=== PATIENT | female | born 1985 | race Caucasian/White ===

== ENCOUNTER 2020-05-19 19:29 | Emergency (ER) | payer BC, SELFPAY ==
[2020-05-19 19:35] VITALS: BP 139/78; PULSE 86; RESP 16; TEMP 36.7; O2SAT 100; BMI 30.1
[2020-05-19 19:46] LABS: Microscopic, Urine URINE MICROSCOPIC (MICROSCOPIC)
[2020-05-19 19:50] LABS: Urine Pregnancy, HCG Qual. Positive (Negative)
[2020-05-19 19:51] LABS: Appearance,Urine SL CLOUDY (Clear); Bilirubin,Urine Negative (Negative); Blood, Urine 3+ (Negative); Color,Urine YELLOW (Yellow); Glucose,Urine (UA) Negative (Negative); Ketones,Urine Negative (Negative); Leukocyte Esterase,Urine TRACE (Negative); Nitrate,Urine Negative (Negative); PH,Urine 6.5 (5.0-8.5); Protein,Urine Negative (Negative); Urobilinogen,Urine 0.2 EU/dl (0.2)
--- NOTE | 2020-05-19 19:53 | PC.NURSE ---
call placed to rad for ultrasound call-in
[2020-05-19 19:54] LABS: Amorphous Sediment,Urine 2+ /lpf
--- NOTE | 2020-05-19 19:54 | US_ITS ---
PROCEDURE: US OB TRANSVAGINAL CLINICAL INDICATION: VAG BLEEDING Early , vaginal bleeding COMPARISON: No exams were available for comparison FINDINGS: There is an intrauterine gestational sac with a pole and yolk sac noted. The crown-rump length is 5.5 mm correlating to gestational age of 6 weeks and 3 days. Heart flicker is noted with technologist was unable to get a tracing for a heart rate. The cervix is closed. There did appear to be a small amount of endocervical fluid. No adnexal mass or cul-de-sac fluid evident. IMPRESSION: Intrauterine gestation at 6 weeks 3 days. Heart flicker is noted but unable to get a tracing for heart rate. Suggest follow-up to confirm viability. Estimated due date by ultrasound is 01/09/2021. Dictated by: Bari Joseph MD 05/20/2020 05:38 Bari Joseph MD in [place] 05/20/2020 05:38
[2020-05-19 19:59] LABS: Basophils % 0.4 % (0.1-2.0); Eosinophils # 0.4 K/mm3 (0.0-0.4); Eosinophils % 4.2 % (0.1-12.0); Hematocrit 40.4 % (37.0-47.0); Hemoglobin 14.2 g/dL (12.2-16.2); Lymphocytes # 2.9 K/mm3 (0.7-4.5); Lymphocytes % 29.6 % (10-50); Mean Corpuscular HGB Conc 35.2 g/dL (31.8-35.4); Mean Corpuscular Volume 93.7 fl (81-99); Monocytes # 0.7 K/mm3 (0.1-1.0); Neutrophils # 5.7 K/mm3 (1.8-7.8); Neutrophils % 58.9 % (37.0-80.0); Platelet Count 271 K/mm3 (142-424); Red Blood Count 4.31 M/mm3 (4.20-5.40); Red Cell Distribution Width 12.7 % (11.5-17.5); White Blood Count 9.7 K/mm3 (4.8-10.8)
--- NOTE | 2020-05-19 20:04 | HMH.EDPREG ---
ED Disposition Clinical Impression: Vaginal bleeding before 22 weeks gestation Qualifiers: Weeks of gestation: less than 8 weeks Qualified Code(s): Z3A.01 - Less than 8 weeks gestation of Disposition: Home, Self-Care Condition on Discharge: Good Instructions: DI for Vaginal Bleeding Additional Instructions: keep appt in am with ob Referrals: PCP,No [Primary Care Provider] - - Critical Care Critical Care Time: No Attestation: On 05/19/20, the high probability of a clinically significant, sudden or life threatening deterioration of the following system(s) required my full and direct attention, intervention and personal management. The time I documented below is in addition to time spent performing reported procedures but includes the following listed in this critical care notation. Medical Decision Making - Medical Records Medical records reviewed: Yes: I reviewed the patient's medical records. - Nguyễn Inquiry Pt receiving controlled substance: No Vital Signs: 05/19/20 19:35 05/19/20 20:05 05/19/20 20:38 Temperature 98.1 F Temperature Source Oral Pulse Rate [Right Brachial] 86 80 79 Respiratory Rate 16 18 18 Blood Pressure [Right Arm] 139/78 120/74 125/66 Blood Pressure Mean [Right Arm] 98 89 85 Blood Pressure Source [Right Arm] Automatic Cuff Blood Pressure Position [Right Arm] Sitting 02 Sat by Pulse Oximetry 100 100 100 Oxygen Delivery Method Room Air 05/19/20 21:14 Temperature Temperature Source Pulse Rate [Right Brachial] 64 Respiratory Rate 18 Blood Pressure [Right Arm] 121/70 Blood Pressure Mean [Right Arm] 87 Blood Pressure Source [Right Arm] Blood Pressure Position [Right Arm] 02 Sat by Pulse Oximetry 100 Oxygen Delivery Method - Lab Data Lab results reviewed: Yes: I reviewed the patient's lab results. Lab Results 05/19/20 19:35: Urine Color Yellow, Urine Appearance Sl cloudy, Urine pH 6.5, Ur Specific [place] 1.020, Urine Protein Negative, Urine Glucose (UA) Negative, Urine Ketones Negative, Urine Blood 3+, Urine Nitrate Negative, Urine Bilirubin Negative, Urine Urobilinogen 0.2, Ur Leukocyte Esterase Trace, Urine RBC 5-10, Urine WBC 10-20, Ur Squamous Epith Cells 10-20, Amorphous Sediment 2+ 05/19/20 19:35: Urine HCG, Qual Positive 05/19/20 19:46: WBC 9.7, RBC 4.31, Hgb 14.2, Hct 40.4, MCV 93.7, MCH 33.0 H, MCHC 35.2, RDW 12.7, Plt Count 271, MPV 7.0 L, Neut % (Auto) 58.9, Lymph % (Auto) 29.6, [place] % (Auto) 7.0, Eos % (Auto) 4.2, Baso % (Auto) 0.4, Neut # (Auto) 5.7, Lymph # (Auto) 2.9, [place] # (Auto) 0.7, Eos # (Auto) 0.4, Baso # (Auto) 0.0 05/19/20 19:46: Sodium 137, Potassium 3.9, Chloride 104, Carbon Dioxide 26, Anion Gap 10.9, BUN 13, Creatinine 0.70, Estimated Creat Clear 139, Estimated GFR 96, Est GFR ( Amer) 117, Glucose 101 H, Calcium 9.0, Total Bilirubin 0.3, AST 24, ALT 18, Alkaline Phosphatase 71, Total Protein 6.8, Albumin 4.1, Globulin 2.7, Albumin/Globulin Ratio 1.5, HCG, Quant [id number] H 05/19/20 21:20: Blood Type O Positive, Antibody Screen Negative Result diagrams: 05/19/20 19:46 05/19/20 19:46 Orders (Tests/Meds): ORDERS Category Date Time Status Urine Culture Stat Micro 05/19/20 19:35 Received US OB transvaginal Stat Ultrasound 05/19/20 19:54 Taken - US Data US Images: Pelvis ED US Reviewed: Yes: I discussed the US results w/the radiologist Findings Narrative: 6 weeks with cardiac flicker HPI - General Chief complaint: Vaginal Bleeding Stated complaint: 8-9 Weeks , vaginal bleeding Time Seen by Provider: 05/19/20 20:00 Mode of Arrival: Ambulatory Source of Information: Patient, Medical Record Limitations: No Limitations Description of Symptoms (Recalled from ER Triage Doc. by RN): Patient reports she is around 8-9 wks , she had a positive pee test at home and is scheduled to see her OB for the first time tomorrow. patient reports around 1045 this morning she noticed some l
[2020-05-19 20:05] VITALS: BP 120/74; PULSE 80; RESP 18; O2SAT 100
[2020-05-19 20:05] LABS: Chloride 104 mmol/L (98-107); Potassium 3.9 mmoL/L (3.5-5.1); Sodium 137 mmol/L (136-145)
[2020-05-19 20:08] LABS: Alanine Aminotransferase 18 U/L (12-78); Albumin Level 4.1 g/dl (3.5-5.0); Albumin/Globulin Ratio 1.5 (1.1-1.8); Alkaline Phosphatase 71 U/L (38-126); Anion Gap 10.9 mEq/L (5-15); Aspartate Amino Transferase 24 U/L (14-36); Bilirubin,Total 0.3 mg/dl (0.2-1.3); Blood Urea Nitrogen 13 mg/dl (7-17); Carbon Dioxide 26 mmol/L (22.0-30.0); Creatinine Clearance Estimated 139 mL/min (50-200); Estimated Glomerular Filt Rate 96 ml/min (>60); GFR (African American) 117 ML/MIN (>60); Globulin 2.7 g/dL (1.3-3.2); Total Protein,Serum 6.8 g/dl (6.3-8.2)
[2020-05-19 20:09] LABS: Glucose 101 mg/dl (74-100)
--- NOTE | 2020-05-19 20:28 | PC.NURSE ---
PT GONE TO US AT THIS TIME
[2020-05-19 20:38] VITALS: BP 125/66; PULSE 79; RESP 18; O2SAT 100
[2020-05-19 21:14] VITALS: BP 121/70; PULSE 64; RESP 18; O2SAT 100
[2020-05-19 22:20] VITALS: BP 118/72; PULSE 68; RESP 16; TEMP 36.7; O2SAT 100
== END 2020-05-19 22:24 | disposition home or self-care (01) ==
PROVIDERS: Emergency Medicine; Emergency Provider Emergency Medicine
DX: O20.9 Hemorrhage in early pregnancy, unspecified (principal); Z3A.08 8 weeks gestation of pregnancy
CPT/HCPCS: 36415; 76817; 80053; 81001; 81025; 84702; 85025; 86850; 87086; 99284

== ENCOUNTER 2022-03-04 19:06 | Emergency (ER) | payer BC, SELFPAY ==
[2022-03-04 19:10] VITALS: BP 138/76; PULSE 91; RESP 19; TEMP 36.8; O2SAT 98; BMI 30.6
--- NOTE | 2022-03-04 20:06 | HMH.EDUTC ---
[facility] [place] Disposition Clinical Impression: Sinusitis Qualifiers: Sinusitis location: unspecified location Chronicity: unspecified Qualified Code(s): J32.9 - Chronic sinusitis, unspecified Disposition: Home, Self-Care Condition on Discharge: Good Instructions: Sinusitis, DI for Sinusitis, Methylprednisolone, Azithromycin Additional Instructions: *Monitor Temp, Over the counter Motrin or Tylenol as directed/as needed Tylenol every 4 hours and Motrin every 6 hours (as long as your family doctor has told you that you can take it) for fever or pain. and straight to ER if unable to lower temp less than 101.0 after medication given *Warm salt water gargles may help to soothe the throat *Throat Lozenges *Warm fluids like tea with honey may help to soothe the throat *Sleep elevated *Humidifier/Vaporizer Take medication as prescribed Return if needed Follow up IMMEDIATELY for new or worsening symptoms or no Noticeable improvement over the next 48-72 hours. 911 for difficulty breathing or swallowing Prescriptions: methylPREDNISolone [Medrol 4mg tab] 4 mg PO DIRECTED #21 tab Transmission Status: Pending to [facility] #[id number] Azithromycin [Z-Emmanuel 250mg Tab] 250 mg PO DIRECTED #6 tab Transmission Status: Pending to [facility] #[id number] Referrals: Provider,Referral, MD [Primary Care Provider] - As needed Time of Disposition: 20:17 Medical Decision Making - Nguyễn Inquiry Pt receiving controlled substance: No Nguyễn was queried for this patient: No Vital Signs: 03/04/22 19:10 03/04/22 20:32 Temperature 98.2 F 98.2 F Temperature Source Oral Pulse Rate 91 H Pulse Rate [Right Brachial] 91 H Respiratory Rate 19 19 Blood Pressure 138/76 Blood Pressure [Right Arm] 138/76 Blood Pressure Mean [Right Arm] 96 Blood Pressure Source [Right Arm] Automatic Cuff Blood Pressure Position [Right Arm] Sitting 02 Sat by Pulse Oximetry 98 Oxygen Delivery Method Room Air Orders (Tests/Meds): ED MEDICATIONS Discontinued Medications Generic Name Dose Route Start Last Admin Trade Name Freq PRN Reason Stop Dose Admin Ceftriaxone Sodium 1 gm 03/04/22 20:13 03/04/22 20:20 Ceftriaxone 1gm Vial IM 03/04/22 20:14 1 gm ONCE ONE Administration Ketorolac Tromethamine 60 mg 03/04/22 20:27 03/04/22 20:30 Ketorolac 60mg/2ml Vial IM 03/04/22 20:28 60 mg ONCE ONE Administration Lidocaine HCl 0 ml 03/04/22 20:13 03/04/22 20:20 Lidocaine 1% 5ml Pf Vial IM 03/04/22 20:14 2 ml ONCE ONE Administration Methylprednisolone Sodium Succinate 125 mg 03/04/22 20:13 03/04/22 20:20 Methylprednisolone Sod Succ 125mg Vial IM 03/04/22 20:14 125 mg ONCE ONE Administration Medical Decision Narrative: Patient denies [facility] [place] HPI - General Stated complaint: sinus upper congestion Time Seen by Provider: 03/04/22 20:07 Mode of Arrival: Ambulatory Source of Information: Patient Limitations: No Limitations Description of Symptoms (Recalled from Triage Doc. by RN): PATIENT C/O SINUS INFECTION THAT IS NOT RESPONSIVE TO OTC MEDICATIONS X 1 WEEK HEENT Symptoms (Recalled from RN notes): Yes Resp Symptoms (Recalled from RN notes): No Skin Symptoms (Recalled from RN notes): No MS Symptoms (Recalled from RN notes): No Functional Status (Recalled from RN notes): WNL - History of Present Illness Provider Complaint: Patient states that she has been having sinus pain and pressure for the last week that has continued to get worse States that she has been having headache and pressure behind her eyes States that today even her teeth hurt so tonight when she wasnt feeling any better she came in - Related Data Home Medications Medication Instructions Recorded Confirmed Dextroamphetamine/Amphetamine 20 mg PO TID 05/19/20 03/04/22 [Adderall 20 mg Tablet] Previous Rx's Medication Instructions Recorded Azithromycin [Z-Emmanuel 250mg Tab] 250 mg PO DIRECTED #6 tab 02/20
[2022-03-04 20:32] VITALS: BP 138/76; PULSE 91; RESP 19; TEMP 36.8; O2SAT 98
== END 2022-03-04 20:45 | disposition home or self-care (01) ==
PROVIDERS: Emergency Provider Nurse Practitioner
DX: J32.9 Chronic sinusitis, unspecified (principal)
CPT/HCPCS: 96372; 99212; G0463; J0696

== ENCOUNTER 2022-04-25 15:37 | Emergency (ER) | payer BC, SELFPAY ==
[2022-04-25 16:00] VITALS: BP 125/76; PULSE 83; RESP 18; TEMP 36.8; O2SAT 97; BMI 28.1
--- NOTE | 2022-04-25 16:13 | EXP.UTC ---
Discharge Plan Disposition Patient Disposition: Home, Self-Care Condition: Good Prescriptions Prescriptions: No Action dextroamphetamine-amphetamine 20 MG tablet 20 mg PO TID Referrals Follow up/Referrals: Provider,Referral, MD [Primary Care Provider] - See instructions Activity Restrictions/Add. Instructions Additional Instructions/Restrictions: Increase fluids and rest. Follow up with PCP if symptoms persist or worsen. Gargle with salt water or use throat lozenges as needed for throat pain. Take Tylenol/Ibuprofen as needed for pain/fever. Clinical Impressions Clinical Impression: Acute streptococcal pharyngitis Discharge ED Provider: Glenny Peace [facility] [place] HPI General Stated complaint: Sore throat Mode of Arrival: Ambulatory Source of Information: Patient Limitations: No Limitations Time Seen by Provider: 04/25/22 16:13 Description of Symptoms (Recalled from Triage Doc. by RN): PATIENT C/O SORE THROAT, LETHARGY AND COUGH X 3 DAYS HEENT Symptoms (Recalled from RN notes): Yes Resp Symptoms (Recalled from RN notes): Yes Skin Symptoms (Recalled from RN notes): No MS Symptoms (Recalled from RN notes): No Functional Status (Recalled from RN notes): WNL Related Data Home Medications Medication Instructions Recorded Confirmed dextroamphetamine-amphetamine 20 20 mg PO TID ADD 05/19/20 04/25/22 mg tablet Allergies Allergy/AdvReac Type Severity Reaction Status Date / Time No Known Allergies Allergy Verified 05/19/20 19:42 Worker's Comp Is this a Worker's Comp case?: No [facility] Medical History (Updated 04/25/22 @ 16:31 by Glenny Peace APRN) No significant past medical history Social History (Updated 04/25/22 @ 16:07 by Silva Vyas RN) Smoking Status: Current every day smoker alcohol intake: never current occupational status: other Travel in the last 8 weeks: None ROS Obtained: Yes All systems reviewed & no additional complaints except as documented Constitutional Constitutional: Reports fatigue, Reports fever(s) and Reports malaise ENT Ears, Nose, Mouth, and Throat: Reports nasal discharge, Reports odynophagia and Reports sore throat Cardiovascular Cardiovascular: Reports system reviewed and no additional complaints, except as documented Respiratory Respiratory: Reports as per HPI and Reports cough Gastrointestinal Gastrointestingal: Reports odynophagia Musculoskeletal Musculoskeletal: Reports system reviewed and no additional complaints, except as documented Integumentary/Breasts Skin/Breast: Reports system reviewed and no additional complaints, except as documented Neurologic Neurologic: Reports system reviewed and no additional complaints, except as documented Endocrine Endocrine: Reports fatigue Physical Exam General General appearance: alert and in no apparent distress Expanded ENT Exam External ear exam: Present normal external inspection Nasal speculum exam: Bilateral: normal Mouth exam: Present normal external inspection Teeth exam: Present normal inspection Throat exam: Present tonsillar erythema and tonsillomegaly Respiratory Respiratory exam: Present normal lung sounds bilaterally; Absent respiratory distress Cardiovascular Cardiovascular exam: Present regular rate and normal rhythm Abdominal Exam Abdominal exam: Present soft Extremities Exam Extremities exam: Present normal inspection Neurological Exam Neurological exam: Present alert and oriented X3 Lymphatic Lymphatic Findings: no adenopathy Medical Decision Making Nguyễn Inquiry Pt receiving controlled substance: No Nguyễn was queried for this patient: No Vital Signs: 04/25/22 16:00 Temperature 98.3 F Temperature Source Oral Pulse Rate [Right Brachial] 83 Respiratory Rate 18 Blood Pressure [Right Arm] 125/76 Blood Pressure Mean [Right Arm] 92 Blood Pressure Source [Right Arm] Automatic Cuff Blood Pressure Position [Right Arm] Sitting 02 Sat by Pulse Oximetry 97 Oxygen Deli
[2022-04-25 16:24] LABS: UTC Strep Screen (Rapid) Positive (Negative)
[2022-04-25 16:45] VITALS: BP 125/76; PULSE 83; RESP 18; TEMP 36.8; O2SAT 97
== END 2022-04-25 16:54 | disposition home or self-care (01) ==
PROVIDERS: Nurse Practitioner; Emergency Provider Nurse Practitioner Family
DX: J02.0 Streptococcal pharyngitis (principal)
CPT/HCPCS: 87880; 96372; 99212; G0463; J0561

== ENCOUNTER 2022-08-30 16:41 | Emergency (ER) | payer BC, SELFPAY ==
[2022-08-30 17:20] VITALS: BP 141/86; PULSE 84; RESP 19; TEMP 36.6; O2SAT 98; BMI 31.9
--- NOTE | 2022-08-30 17:39 | EXP.UTC ---
Discharge Plan Disposition Patient Disposition: Home, Self-Care Condition: Good Prescriptions Prescriptions: New prednisone 10 mg tablet 10 mg PO BID 5 Days Qty: 10 0RF benzonatate 100 mg capsule 100 mg PO TID PRN (Reason: cough) Qty: 30 0RF amoxicillin-pot clavulanate 875-125 mg Tablet 1 tab PO Q12H Qty: 14 0RF No Action dextroamphetamine-amphetamine 20 MG tablet 20 mg PO TID Referrals Follow up/Referrals: Provider,Referral, MD [Primary Care Provider] - See instructions Activity Restrictions/Add. Instructions Additional Instructions/Restrictions: Start your oral medication tomorrow *Monitor Temp, Over the counter Motrin or Tylenol as directed/as needed Tylenol every 4 hours and Motrin every 6 hours (as long as your family doctor has told you that you can take it) for fever or pain. and straight to ER if unable to lower temp less than 101.0 after medication given *Warm salt water gargles may help to soothe the throat *Throat Lozenges? *Warm fluids like tea with honey may help to soothe the throat? *Sleep elevated *Humidifier/Vaporizer Follow up IMMEDIATELY for new or worsening symptoms or no Noticeable improvement over the next 48-72 hours. 911 for difficulty breathing or swallowing Clinical Impressions Clinical Impression: Sinusitis Qualifiers: Sinusitis location: unspecified location Chronicity: unspecified Qualified Code(s): J32.9 - Chronic sinusitis, unspecified Instructions Patient Instructions: Sinusitis, DI for Sinusitis Discharge ED Provider: Suzie Pineda [facility] General Stated complaint: poss sinus inf, estuardo Time Seen by Provider: 08/30/22 17:39 History of Present Illness Provider Complaint: Patient states that she thinks she may have a sinus infection States that symptoms started about 6 days ago States that she had body aches earlier in the week but for the last 5 days she has been sinus pain and pressure, pressure in her ears and over all not feeling well States that today she was still not feeling any better so she came in to get it checked out Related Data Home Medications Medication Instructions Recorded Confirmed dextroamphetamine-amphetamine 20 20 mg PO TID ADD 05/19/20 04/25/22 mg tablet Previous Rx's Medication Instructions Recorded amoxicillin 875 mg-potassium 1 tab PO Q12H #14 tabs 08/30/22 clavulanate 125 mg tablet benzonatate 100 mg capsule 100 mg PO TID PRN cough #30 caps 08/30/22 prednisone 10 mg tablet 10 mg PO BID 5 days #10 tabs 08/30/22 Allergies Allergy/AdvReac Type Severity Reaction Status Date / Time No Known Allergies Allergy Verified 05/19/20 19:42 [facility] Disclaimer: The information contained in this section may have been updated after the patient was seen, as this information can be updated by other users. Medical History (Updated 08/30/22 @ 17:48 by Suzie Pineda APRN) No significant past medical history Social History (Updated 08/30/22 @ 17:42 by Silva Vyas RN) Smoking Status: Current every day smoker alcohol intake: never current occupational status: other Travel in the last 8 weeks: None ROS Obtained: Yes All systems reviewed & no additional complaints except as documented and Yes Systems reviewed as appropriate & no additional complaints except as documented Constitutional Constitutional: Reports system reviewed and no additional complaints, except as documented, Reports as per HPI, Reports body ache and Reports headache(s) ENT Ears, Nose, Mouth, and Throat: Reports system reviewed and no additional complaints, except as documented, Reports as per HPI, Reports headache(s), Reports sinus pain and Reports sinus pressure Cardiovascular Cardiovascular: Reports system reviewed and no additional complaints, except as documented and Reports as per HPI Respiratory Respiratory: Reports system reviewed and no additional complaints, except as documented, Reports as per
[2022-08-30 18:19] VITALS: BP 141/86; PULSE 84; RESP 19; TEMP 36.6; O2SAT 98
== END 2022-08-30 18:20 | disposition home or self-care (01) ==
PROVIDERS: Emergency Provider Nurse Practitioner
DX: J32.9 Chronic sinusitis, unspecified (principal)
CPT/HCPCS: 96372; 99212; 99213; G0463; J0696

== ENCOUNTER 2022-11-21 08:00 | Emergency (ER) | payer BC, SELFPAY ==
[2022-11-21 08:05] VITALS: BP 130/107; PULSE 83; RESP 22; TEMP 36.8; O2SAT 95; BMI 34.6
--- NOTE | 2022-11-21 08:27 | EXP.UTC ---
Discharge Plan Disposition Patient Disposition: Home, Self-Care Condition: Good Prescriptions Prescriptions: New azithromycin [azithromycin] 250 mg tablet 250 mg PO DIRECTED Qty: 6 0RF Rx Instructions: Take two (2) tablets on day #1, then one (1) tablet day #2 thru #5 benzonatate 100 mg capsule 100 mg PO BID PRN (Reason: cough) Qty: 10 0RF prednisone [prednisone] 20 mg tablet 20 mg PO BID Qty: 10 0RF No Action dextroamphetamine-amphetamine 20 MG tablet 20 mg PO TID Referrals Follow up/Referrals: Provider,Referral, MD [Primary Care Provider] - See instructions Activity Restrictions/Add. Instructions Additional Instructions/Restrictions: Start antibiotic today. Be sure to complete entire prescription even if feeling better Tylenol and ibuprofen as needed for pain or fever Humidifier/vaporizer/hot steamy shower Follow-up with primary care tomorrow. Follow-up immediately in the ER of the [facility] for new or worsening symptoms or no noticeable improvement over the next 48-72 hours. Stop smoking Inhaler every 4-6 hours as needed. Should help open airways improved cough, wheezing, shortness of breath Deepthi Baird will not cause drowsiness to use at bedtime to help stop cough so that she can get some sleep Start steroids today. Helps with inflammation therefore coughing and wheezing. Follow directions on package. Clinical Impressions Clinical Impression: Acute streptococcal pharyngitis, Acute bronchitis Instructions Patient Instructions: Acute Bronchitis, DI for Strep Throat [facility]charge [facility] General Stated complaint: Fever, bodyaches, sore throat, cough, congestion Mode of Arrival: Ambulatory Source of Information: Patient Limitations: No Limitations Time Seen by Provider: 11/21/22 08:27 Description of Symptoms (Recalled from Triage Doc. by RN): PATIENT C/O BAD COUGH X 7-8 WEEKS. PATIENT ALSO C/O FEVER, SORE THROAT, BODY ACHES, AND CHEST CONGESTION FOR THE LAST WEEK HEENT Symptoms (Recalled from RN notes): Yes Resp Symptoms (Recalled from RN notes): Yes Skin Symptoms (Recalled from RN notes): No MS Symptoms (Recalled from RN notes): No Functional Status (Recalled from RN notes): WNL History of Present Illness Provider Complaint: 37 yr old female presents for cough for 7-8 weeks, but over the last week she has had body aches,chills, sore throat,fever, chest congestion, coughing up thick green mucus and sinus pressure. Related Data Home Medications Medication Instructions Recorded Confirmed dextroamphetamine-amphetamine 20 20 mg PO TID ADD 05/19/20 11/21/22 mg tablet Previous Rx's Medication Instructions Recorded azithromycin 250 mg tablet 250 mg PO DIRECTED #6 tabs 11/21/22 benzonatate 100 mg capsule 100 mg PO BID PRN cough #10 caps 11/21/22 prednisone 20 mg tablet 20 mg PO BID #10 tabs 11/21/22 Allergies Allergy/AdvReac Type Severity Reaction Status Date / Time No Known Allergies Allergy Verified 05/19/20 19:42 Worker's Comp Is this a Worker's Comp case?: No [facility] Disclaimer: The information contained in this section may have been updated after the patient was seen, as this information can be updated by other users. Medical History , [employer]IL [employer]) No significant past medical history Social History , [employer]ENCIL [employer]) Smoking Status: Current every day smoker alcohol intake: never current occupational status: other Travel in the last 8 weeks: None ROS Obtained: Yes All systems reviewed & no additional complaints except as documented Constitutional Constitutional: Reports system reviewed and no additional complaints, except as documented, Reports as per HPI, Reports body ache, Reports chills and Reports fever(s) Eyes Eyes: Reports system reviewed and no additional complaints, except as documented ENT Ears, Nose, Mouth
[2022-11-21 08:54] VITALS: BP 130/107; PULSE 83; RESP 22; TEMP 36.8; O2SAT 95
[2022-11-21 08:57] LABS: UTC Influenza A Antigen Negative (Negative); UTC Influenza B Antigen Negative (Negative)
[2022-11-21 08:57] LABS: UTC Strep Screen (Rapid) Negative (Negative)
== END 2022-11-21 09:03 | disposition home or self-care (01) ==
PROVIDERS: Emergency Provider Nurse Practitioner Family
DX: J20.9 Acute bronchitis, unspecified (principal); J02.9 Acute pharyngitis, unspecified; R50.9 Fever, unspecified; F17.200 Nicotine dependence, unspecified, uncomplicated
CPT/HCPCS: 96372; 87804; 87880; 99212; 99214; G0463

== ENCOUNTER 2023-08-28 09:57 | Emergency (ER) | payer BC, SELFPAY ==
[2023-08-28 10:05] VITALS: BP 121/99; PULSE 94; RESP 19; TEMP 37.1; O2SAT 100; BMI 33.9
--- NOTE | 2023-08-28 10:16 | ED_ITS ---
Discharge Plan Disposition Patient Disposition: Home, Self-Care Condition: Good Prescriptions Prescriptions: No Action dextroamphetamine-amphetamine 30 mg tablet 30 mg PO BID Patient Comments: TAKE 1 TABLET BY MOUTH TWICE DAILY NEEDED Referrals Follow up/Referrals: Provider,Referral, MD [Primary Care Provider] - See instructions Activity Restrictions/Add. Instructions Additional Instructions/Restrictions: *Monitor Temp, Over the counter Motrin or Tylenol as directed/as needed Tylenol every 4 hours and Motrin every 6 hours (as long as your family doctor has told you that you can take it) for fever or pain. and straight to ER if unable to lower temp less than 101.0 after medication given *Warm salt water gargles may help to soothe the throat *Throat Lozenges? *Warm fluids like tea with honey may help to soothe the throat? *Sleep elevated *Humidifier/Vaporizer Follow up IMMEDIATELY for new or worsening symptoms or no Noticeable improvement over the next 48-72 hours. 911 for difficulty breathing or swallowing Clinical Impressions Clinical Impression: Strep throat Instructions Patient Instructions: Strep Throat, DI for Strep Throat Discharge ED Provider: Suzie Pineda [facility] [place] HPI General Stated complaint: sore throat, body aches Mode of Arrival: Ambulatory Source of Information: Patient Limitations: No Limitations Time Seen by Provider: 08/28/23 10:17 Description of Symptoms (Recalled from Triage Doc. by RN): PATIENT C/O SORE THROAT, BODY ACHES AND LETHARGY SINCE YESTERDAY MORNING HEENT Symptoms (Recalled from RN notes): Yes Resp Symptoms (Recalled from RN notes): No Skin Symptoms (Recalled from RN notes): No MS Symptoms (Recalled from RN notes): No Functional Status (Recalled from RN notes): WNL History of Present Illness Provider Complaint: Patient states that she started feeling bad yesterday States that she has been having sore throat, body aches, headache and fatigue States that she feels like she may have strep throat Related Data Home Medications Medication Instructions Recorded Confirmed dextroamphetamine-amphetamine 30 30 mg PO BID 08/28/23 08/28/23 mg tablet Allergies Allergy/AdvReac Type Severity Reaction Status Date / Time No Known Allergies Allergy Verified 05/19/20 19:42 Worker's Comp Is this a Worker's Comp case?: No [facility] Disclaimer: The information contained in this section may have been updated after the patient was seen, as this information can be updated by other users. Medical History , [employer]) No significant past medical history Social History , [employer]) Smoking Status: Current every day smoker alcohol intake: never current occupational status: other Travel in the last 8 weeks: None ROS Obtained: Yes All systems reviewed & no additional complaints except as documented and Yes Systems reviewed as appropriate & no additional complaints except as documented Constitutional Constitutional: Reports system reviewed and no additional complaints, except as documented, Reports as per HPI, Reports fatigue and Reports headache(s) ENT Ears, Nose, Mouth, and Throat: Reports system reviewed and no additional complaints, except as documented, Reports as per HPI, Reports headache(s) and Reports sore throat Cardiovascular Cardiovascular: Reports system reviewed and no additional complaints, except as documented and Reports as per HPI Respiratory Respiratory: Reports system reviewed and no additional complaints, except as documented and Reports as per HPI Gastrointestinal Gastrointestingal: Reports system reviewed and no additional complaints, except as documented and as per HPI Neurologic Neurologic: Reports headache(s) Endocrine Endocrine: Reports fatigue Physical Exam General General appearance: alert and in no apparent distress ENT ENT exam: Present mucous membranes moist Expanded ENT Exam Throat exam: Present tonsillar erythema and tonsillar exudate Respiratory Respiratory exam: Present normal lung sounds bilaterally; Absent respiratory distress or wheezes Cardiovascular Cardiovascular exam: Present regular rate, normal rhythm and normal heart sounds Abdominal Exam Abdominal exam: Present soft and normal bowel sounds; Absent distention or tenderness Neurological Exam Neurological exam: Present alert, oriented X3 and normal gait Medical Decision Making Nguyễn Inquiry Pt receiving controlled substance: No Nguyễn was queried for this patient: No Vital Signs: 08/28/23 10:05 Temperature 98.8 F Temperature Source Oral Pulse Rate [Left Brachial] 94 H Respiratory Rate 19 Blood Pressure [Left Arm] 121/99 H Blood Pressure Mean [Left Arm] 106 Blood Pressure Source [Left Arm] Automatic Cuff Blood Pressure Position [Left Arm] Sitting 02 Sat by Pulse Oximetry 100 Oxygen Delivery Method Room Air Lab Data Lab results reviewed: Yes I reviewed the patient's lab results.
[2023-08-28 10:27] LABS: UTC Influenza A Antigen Negative (Negative); UTC Influenza B Antigen Negative (Negative); UTC Strep Screen (Rapid) Positive (Negative)
[2023-08-28] MEDS: PENICILLIN G BENZATHINE 1,200,000 UNITS/2ML SYRINGE 1200000 UNIT IM (10:38)
[2023-08-28 10:49] VITALS: BP 121/99; PULSE 94; RESP 19; TEMP 37.1; O2SAT 100
== END 2023-08-28 10:56 | disposition home or self-care (01) ==
PROVIDERS: Emergency Provider Nurse Practitioner
DX: J02.0 Streptococcal pharyngitis (principal); R07.0 Pain in throat; R51.9 Headache, unspecified; R50.9 Fever, unspecified; R53.83 Other fatigue; M79.18 Myalgia, other site; F17.210 Nicotine dependence, cigarettes, uncomplicated
CPT/HCPCS: 87804; 87880; 96372; 99212; 99214; G0463; J0561